=== PATIENT | male | born 1975 | race Caucasian/White ===

== ENCOUNTER 2024-12-08 14:13 | Day surgery (SDC) | payer BC ==
[2024-12-08] MEDS ORDERED: Sodium Chloride 0.9% 10 ML Syringe FLUSH PRN ×2 (14:30→17:21)
[2024-12-08 15:25] LABS: BASOPHILS PERCENT AUTO 0.2 % (0.0-1.0); EOSINOPHILS ABSOLUTE AUTO 0.2 K/mm3 (0.0-0.4); EOSINOPHILS PERCENT AUTO 1.8 % (0.0-6.0); HEMATOCRIT 43.9 % (42.0-52.0); HEMOGLOBIN 15.5 gm/dl (14.0-18.0); IMMATURE GRAN ABSOLUTE AUTO 0.05 K/mm3 (0.00-0.05); IMMATURE GRAN PERCENT AUTO 0.5 % (0.0-0.4); LYMPHOCYTES ABSOLUTE AUTO 2.4 K/mm3 (1.0-4.8); LYMPHOCYTES PERCENT AUTO 23.8 % (24.0-44.0); MEAN CORPUSCULAR HEMOGLOBIN 32.8 pg (28.0-32.0); MEAN CORPUSCULAR HGB CONC 35.3 g/dl (32.0-36.0); MEAN CORPUSCULAR VOLUME 92.8 fl (83.0-99.0); MEAN PLATELET VOLUME 9.2 fl (9.4-12.4); MONOCYTES ABSOLUTE AUTO 0.9 K/mm3 (0.0-0.8); MONOCYTES PERCENT AUTO 8.7 % (0.0-8.0); NEUTROPHILS ABSOLUTE AUTO 6.6 K/mm3 (1.8-7.7); PLATELET COUNT,PLT 283 K/mm3 (150-400); RED BLOOD CELL COUNT 4.73 M/mm3 (4.52-5.90); WHITE BLOOD CELL COUNT,WBC 10.08 K/mm3 (3.9-11.3)
[2024-12-08] MEDS: Sodium Chloride 0.9% 1,000 ML IV ONE (15:32)
[2024-12-08] MEDS ORDERED: Midazolam 1 MG/ML 2 ML SDV ONE (15:45)
[2024-12-08] MEDS ORDERED: fentaNYL 250 MCG/5 ML SDV ONE (15:45)
[2024-12-08] MEDS ORDERED: Propofol 200 MG/20 ML SDV ONE ×2 (15:45→16:55)
[2024-12-08] MEDS ORDERED: Rocuronium 50 MG/5 ML Vial ONE (15:51)
[2024-12-08] MEDS ORDERED: Dexamethasone 4 MG/ML 5 ML MDV ONE (15:51)
[2024-12-08] MEDS ORDERED: Esmolol 100 MG/10 ML SDV ONE (15:51)
[2024-12-08] MEDS ORDERED: Ketorolac 30 MG/ML SDV ONE (15:51)
[2024-12-08] MEDS ORDERED: Sugammadex Sodium 200 MG/2 ML VIAL IV ONE (15:51)
[2024-12-08] MEDS ORDERED: Lidocaine 1% 5 ML VIAL ONE (15:51)
[2024-12-08] MEDS: Iopamidol 612 MG/ML 100 ML Bottle IVPUSH ONE (15:52)
[2024-12-08] MEDS: Sodium Chloride 0.9% 10 ML Syringe FLUSH ONE (15:52)
[2024-12-08] MEDS: Iopamidol 612 MG/ML 30 ML SDV IVPUSH ONE (15:52)
[2024-12-08 16:04] LABS: A/G RATIO 0.9 (1-2); ALBUMIN 3.7 g/dl (3.4-5.0); ANION GAP 11.7 (5-15); BILIRUBIN TOTAL 0.8 mg/dL (0.2-1.0); BUN/CREATININE RATIO 10.9 (14-18); CALCIUM 9.1 mg/dL (8.5-10.1); CREATININE 1.1 mg/dL (0.7-1.3); EST CRCL DRUG DOSING (CG) 94.45 mL/min; POTASSIUM,K 3.7 mEq/L (3.5-5.1); PROTEIN TOTAL,TP 7.8 g/dl (6.4-8.2)
[2024-12-08] MEDS ORDERED: Lactated Ringers 1,000 ML ONE ×2 (16:31)
[2024-12-08] MEDS ORDERED: cefOXitin 2 GM in Sodium Chloride 0.9% 50 ML IV ONE (16:33)
[2024-12-08] MEDS: Piperacillin/Tazobactam 4.5 GM in Sodium Chloride 0.9% 100 ML IV ONE (16:35)
[2024-12-08] MEDS ORDERED: Sodium Chloride 0.9% 100 ML ONE (16:48)
[2024-12-08] MEDS ORDERED: dexmedeTOMIDine HCl 200 MCG/2 ML SDV ONE (16:50)
[2024-12-08] MEDS ORDERED: Ondansetron 4 MG/2 ML SDV ONE (17:17)
[2024-12-08] MEDS ORDERED: fentaNYL 100 MCG/2 ML SDV IVPUSH PRN (17:21)
[2024-12-08] MEDS ORDERED: Ondansetron 4 MG/2 ML SDV IVPUSH PRN (17:21)
[2024-12-08] MEDS ORDERED: HYDROmorphone 0.5 MG/0.5 ML Syringe IVPUSH PRN (17:21)
[2024-12-08] MEDS ORDERED: HYDROmorphone 0.5 MG/0.5 ML Syringe ONE (17:27)
[2024-12-08] MEDS ORDERED: Lactated Ringers 1,000 ML IV SCH (17:30)
[2024-12-08] MEDS ORDERED: cefOXitin 2 GM Vial ONE (17:55)
[2024-12-08 18:07] LABS: APPEARANCE,URINE CLEAR (Clear); BILIRUBIN,URINE NEGATIVE (Negative); COLOR,URINE YELLOW (Yellow); GLUCOSE,URINE NEGATIVE (Negative); KETONES,URINE NEGATIVE (Negative); LEUKOCYTE ESTERASE,URINE NEGATIVE (Negative); NITRITE,URINE NEGATIVE (Negative); OCCULT BLOOD,URINE NEGATIVE (Negative); PH,URINE 6.5 (5.0-8.0); PROTEIN,URINE NEGATIVE (Negative); UROBILINOGEN,URINE 0.2 (0.2-1.0)
[2024-12-08] MEDS: Bupivacaine 0.5% 30 ML SDV ONE (18:17)
[2024-12-08] MEDS: EPINEPHrine 1 MG/ML SDV ONE (18:18)
[2024-12-08] MEDS ORDERED: Sodium Chloride 0.9% 10 ML Syringe FLUSH SCH (21:00)
== END 2024-12-08 20:00 | disposition home or self-care (01) ==
LOC: JD.ED 14:13 → JD.SDS 16:33
PROVIDERS: ATTEND Surgery
DX: K35.30 Acute appendicitis with localized peritonitis, without perforation or gangrene (principal); K66.0 Peritoneal adhesions (postprocedural) (postinfection); E66.9 Obesity, unspecified; I10 Essential (primary) hypertension; E11.9 Type 2 diabetes mellitus without complications; F17.210 Nicotine dependence, cigarettes, uncomplicated; Z68.30 Body mass index [BMI] 30.0-30.9, adult; Z79.899 Other long term (current) drug therapy
CPT/HCPCS: 00840; 36415; 74177; 74177-26; 80053; 81003; 83605; 85025; 87040; 96361; 96365; 99140; 99285; 99285-25; J0171; J0665; J0694; J1100; J1885; J2003; J2250; J2405; J2543; J2704; J3010; J3490; J7030; J7120; Q9967

== ENCOUNTER 2024-12-09 08:29 | Emergency (ER) | payer BC | END 2024-12-09 09:45 | disposition home or self-care (01) | LOC: JD.ED 08:29 | DX: L76.32 Postprocedural hematoma of skin and subcutaneous tissue following other procedure (principal); I10 Essential (primary) hypertension; E66.9 Obesity, unspecified; Z79.899 Other long term (current) drug therapy; Z68.38 Body mass index [BMI] 38.0-38.9, adult | CPT/HCPCS: 99283 ==